=== PATIENT | female | born 2000 | race Caucasian/White ===

== ENCOUNTER 2018-12-02 19:41 | Emergency (ER) | payer OTHER ==
[~2018-12-02] VITALS: Ht 165.1 cm; Wt 63.6 kg
[2018-12-02] MEDS ORDERED: IBUPROFEN 600 MG TABLET PO ONE (23:45)
[2018-12-02 23:55] VITALS: BP 118/73
== END 2018-12-02 23:55 | disposition home or self-care (01) ==
LOC: EMS 19:42
DX: S63.92XA Sprain of unspecified part of left wrist and hand, initial encounter (principal); W03.XXXA Other fall on same level due to collision with another person, initial encounter; Y93.89 Activity, other specified; Y92.89 Other specified places as the place of occurrence of the external cause; Y99.8 Other external cause status
CPT/HCPCS: 29280

== ENCOUNTER 2019-01-21 10:58 | Emergency (ER) | payer OTHER ==
[~2019-01-21] VITALS: Ht 165.1 cm; Wt 69.5 kg
[2019-01-21] MEDS ORDERED: IBUPROFEN 800 MG TABLET PO ONE (11:45)
[2019-01-21 13:15] VITALS: BP 108/77
== END 2019-01-21 13:30 | disposition home or self-care (01) ==
LOC: EMS 10:59
DX: S86.812A Strain of other muscle(s) and tendon(s) at lower leg level, left leg, initial encounter (principal); M25.462 Effusion, left knee; W51.XXXA Accidental striking against or bumped into by another person, initial encounter; Y93.66 Activity, soccer; Y92.89 Other specified places as the place of occurrence of the external cause; Y99.8 Other external cause status
CPT/HCPCS: 29505